=== PATIENT | male | born 1965 ===

== ENCOUNTER 2019-06-14 08:39 | Outpatient (CLI) | payer SELFPAY ==
[2019-06-20 16:34] LABS: COVID-19 RT-PCR Result Not Detected (NotDetected)
== END 2019-06-14 08:59 ==
PROVIDERS: Visit Provider Registered Nurse
DX: Z20.828 Contact with and (suspected) exposure to other viral communicable diseases (principal); R05 Cough
CPT/HCPCS: U0003